=== PATIENT | female | born 1995 | race Caucasian/White ===

== ENCOUNTER 2023-11-05 15:31 | Inpatient (IN) | payer BC ==
[2023-11-05 15:51] VITALS: BMI 32.5
[2023-11-05 16:20] LABS: Fetal Membranes Rupture RUPTURE DETECTED (No Rupture)
[2023-11-05] MEDS ORDERED: Ibuprofen 800 MG TAB PO PRN (17:21)
[2023-11-05] MEDS ORDERED: HYDROcodone/Acetaminophen 5/325 mg Tablet PO PRN (17:21)
[2023-11-05] MEDS ORDERED: Methylergonovine 0.2 MG/ML VIAL IM PRN (17:21)
[2023-11-05] MEDS ORDERED: fentaNYL 50 mcg/mL 1 mL Vial SLOW IVP PRN (17:21)
[2023-11-05] MEDS ORDERED: Acetaminophen 500 MG TAB PO PRN (17:21)
[2023-11-05] MEDS ORDERED: Promethazine HCl 25 MG/ML VIAL IM PRN (17:21)
[2023-11-05] MEDS ORDERED: Zolpidem Tartrate 5 MG TAB PO PRN (17:21)
[2023-11-05] MEDS ORDERED: Misoprostol 200 MCG TAB PR PRN (17:21)
[2023-11-05] MEDS ORDERED: Lidocaine 1% (PF) 30 ML VIAL SC PRN (17:21)
[2023-11-05] MEDS ORDERED: hydrALAZINE 20 MG/ML VIAL SLOW IVP PRN (17:21)
[2023-11-05] MEDS ORDERED: Diphenoxylate HCl/Atropine Tablet PO PRN (17:21)
[2023-11-05] MEDS ORDERED: Ondansetron PF 4 MG/2 ML Vial IVP PRN (17:21)
[2023-11-05] MEDS ORDERED: Carboprost 250 MCG/ML AMP IM PRN (17:21)
[2023-11-05] MEDS ORDERED: Oxytocin 30 units/NS 500 ML 500 ML IV SCH ×2 (17:30)
[2023-11-05] MEDS: Misoprostol 100 MCG TAB PO SCH ×2 (17:57→20:34)
[2023-11-05 18:01] LABS: Hematocrit 33.8 % (34.9-44.5); Hemoglobin 11.7 g/dL (12.0-15.5); Mean Corpuscular HGB CONC 34.6 g/dL (32.0-36.0); Mean Corpuscular Hemoglobin 31.2 pg (27.0-33.0); Mean Corpuscular Volume 90.1 fL (81.6-98.3); Mean Platelet Volume 11.9 fL (7.4-10.4); Platelet Count 193 10x3/uL (150-450); RBC Distribution Width 12.7 % (11.5-14.5); Red Blood Cell (RBC) Count 3.75 10x6/uL (3.90-5.03); White Blood Cell (WBC) Count 8.2 10x3/uL (3.5-10.5)
[2023-11-05 18:12] LABS: ALT (SGPT) 11 U/L (8-55); AST (SGOT) 19 U/L (5-34); Albumin 2.9 g/dL (3.5-5.0); Alkaline Phosphatase 373 U/L (40-110); Anion Gap 14 mmol/L (10-20); BUN (Urea Nitrogen) 11 mg/dL (7.0-18.7); Bilirubin, Total 0.2 mg/dL (0.2-1.2); Calc. Creatinine Clearance 167 mL/min (70-130); Calcium 9.3 mg/dL (7.8-10.44); Carbon Dioxide 18 mmol/L (22-29); Chloride 109 mmol/L (98-107); Estimated GFR 108; Glucose 98 mg/dL (70-105); Potassium 3.9 mmol/L (3.5-5.1); Protein, Total 5.9 g/dL (6.0-8.3); Sodium 137 mmol/L (136-145)
[2023-11-05 18:30] LABS: Syphilis Antibody Nonreactive (Nonreactive); Syphilis Antibody Index 0.05 S/CO (<1.00 Non-Reactive)
[2023-11-05 18:31] LABS: HBsAg Index 0.14 S/CO (0-0.99); Hep B Surf Ag - L&D Non-Reactive S/CO (NonReactive)
[2023-11-06] MEDS: Lactated Ringer's 1,000 ML IV SCH (09:39)
[2023-11-06] MEDS: Penicillin G Potassium 5 MILL.UNITS in Sodium Chloride 0.9% 100 ML IVPB SCH (11:26)
[2023-11-06] MEDS ORDERED: Famotidine/PF 20 mg/2ml Vial SLOW IVP PRN (12:23)
[2023-11-06] MEDS ORDERED: Bicitra 30 ML UDCUP PO PRN (12:23)
[2023-11-06] MEDS ORDERED: Azithromycin 500 MG in Sodium Chloride 0.9% 250 ML 250 ML IVPB SCH (12:30)
[2023-11-06] MEDS ORDERED: diphenhydrAMINE 50 MG/ML VIAL IVP PRN (13:41)
[2023-11-06] MEDS ORDERED: Ondansetron PF 4 MG/2 ML Vial IVP PRN (13:41)
[2023-11-06] MEDS ORDERED: Promethazine HCl 25 MG/ML VIAL IM PRN (13:41)
[2023-11-06] MEDS ORDERED: Moisturizing Cream (Eucerin) 113 GM JAR TOP PRN (13:41)
[2023-11-06] MEDS ORDERED: Naloxone HCl 0.4 mg/ml Vial IV PRN (13:41)
[2023-11-06] MEDS ORDERED: Meperidine HCl/PF 25 MG (1 mL) VIAL SLOW IVP PRN (13:41)
[2023-11-06] MEDS ORDERED: Naloxone HCl 0.4 mg/ml Vial IVP PRN ×2 (13:41)
[2023-11-06] MEDS ORDERED: Communication Order-Pharmacy FS SCH (13:45)
[2023-11-06] MEDS ORDERED: Methylergonovine 0.2 MG/ML VIAL IM PRN (14:26)
[2023-11-06] MEDS ORDERED: Acetaminophen 325 MG TAB PO PRN (14:26)
[2023-11-06] MEDS ORDERED: Lanolin Ointment 7 GM TUBE TOP PRN (14:26)
[2023-11-06] MEDS ORDERED: hydrALAZINE 20 MG/ML VIAL SLOW IVP PRN (14:26)
[2023-11-06] MEDS ORDERED: Misoprostol 200 MCG TAB PR PRN (14:26)
[2023-11-06] MEDS ORDERED: Simethicone Chewable 80 MG TAB PO PRN (14:26)
[2023-11-06] MEDS ORDERED: Oxytocin 30 units/NS 500 ML 500 ML IV SCH (14:30)
[2023-11-06] MEDS: fentaNYL 50 mcg/mL 1 mL Vial SLOW IVP PRN (15:55)
[2023-11-06] MEDS: Ondansetron PF 4 MG/2 ML Vial IVP PRN (16:14)
[2023-11-06] MEDS: Azithromycin 500 MG VIAL ONE (17:52)
[2023-11-06] MEDS: CEFAZOLIN 2 GM VIAL ONE (17:52)
[2023-11-06] MEDS: Dexmedetomidine 200 MCG/2 ML VIAL ONE (17:52)
[2023-11-06] MEDS: Morphine PF 10 MG/10 ML VIAL ONE (17:52)
[2023-11-06] MEDS: Phenylephrine 40 MG/NS 250 ML 250 ML ONE (17:53)
[2023-11-06] MEDS: Sterile Water 10 ML ONE (17:53)
[2023-11-06] MEDS: Ketorolac Tromethamine 30 MG (1 mL) VIAL ONE (17:53)
[2023-11-06] MEDS: Oxytocin 10 UNITS/ML VIAL ONE ×2 (17:53)
[2023-11-06] MEDS: Ondansetron PF 4 MG/2 ML Vial ONE (17:53)
[2023-11-06] MEDS: Dexamethasone 10 MG/ML VIAL ONE (17:53)
[2023-11-06] MEDS: Boostrix 0.5 ML (Tdap) VIAL (>/=7 yrs of age) IM ONE (17:54)
[2023-11-06] MEDS: Ketorolac Tromethamine 30 MG (1 mL) VIAL IVP SCH (20:11)
[2023-11-07] MEDS: Prenatal Vitamin 1 TAB PO SCH (09:02)
[2023-11-07] MEDS: Docusate 100 MG CAP PO SCH (09:02)
[2023-11-07] MEDS ORDERED: HYDROcodone/Acetaminophen 5/325 mg Tablet PO PRN (12:31)
[2023-11-07] MEDS: Ibuprofen 800 MG TAB PO SCH (12:56)
[2023-11-08] MEDS ORDERED: HYDROcodone/Acetaminophen 5/325 mg Tablet PO PRN (08:33)
[2023-11-08 09:39] LABS: Hematocrit 32.2 % (34.9-44.5); Hemoglobin 10.7 g/dL (12.0-15.5); Mean Corpuscular HGB CONC 33.2 g/dL (32.0-36.0); Mean Corpuscular Volume 93.3 fL (81.6-98.3); Mean Platelet Volume 12.1 fL (7.4-10.4); Platelet Count 197 10x3/uL (150-450); RBC Distribution Width 13.2 % (11.5-14.5); Red Blood Cell (RBC) Count 3.45 10x6/uL (3.90-5.03); White Blood Cell (WBC) Count 9.6 10x3/uL (3.5-10.5)
[2023-11-08 11:21] VITALS: BP 125/83; TEMP 98.2
== END 2023-11-08 13:14 | disposition home or self-care (01) | DRG 788 ==
LOC: CSHLD/OP 15:31 → CSHLD 16:53 → CSHPP 11-06 17:00
PROVIDERS: ADMIT Student in an Organized Health Care Education/Training Program; ATTEND Student in an Organized Health Care Education/Training Program
PROC: 3E0P7VZ Introduction of Hormone into Female Reproductive, Via Natural or Artificial Opening (ICD-10-PCS; 2023-11-05)
PROC: 10D00Z1 Extraction of Products of Conception, Low, Open Approach (ICD-10-PCS; principal; 2023-11-06)
PROC: 3E0P7VZ Introduction of Hormone into Female Reproductive, Via Natural or Artificial Opening (ICD-10-PCS; 2023-11-06)
DX: O42.02 Full-term premature rupture of membranes, onset of labor within 24 hours of rupture (principal); O62.1 Secondary uterine inertia; Z3A.39 39 weeks gestation of pregnancy; Z37.0 Single live birth; O99.893 Other specified diseases and conditions complicating puerperium; N83.202 Unspecified ovarian cyst, left side; O77.0 Labor and delivery complicated by meconium in amniotic fluid
CPT/HCPCS: 36415; 51702; 80053; 84112; 85027; 86780; 86850; 86900; 86901; 87340; 88307; 99285; J1100; J1885; J2274; J2405; J2540; J2590; J3010; J3490